=== PATIENT | female | born 2000 | race Caucasian/White ===

== ENCOUNTER 2022-03-25 19:51 | Emergency (ER) | payer BC ==
[2022-03-25 20:11] VITALS: BP 115/81; RESP 20
--- NOTE | 2022-03-25 20:37 | ED ---
General Adult HPI <TianSanta - Last Filed: 03/25/22 21:49> - General Source: patient, RN notes reviewed - History of Present Illness -: days(s) (1) Location: head Severity scale (1-10): 4 Quality: aching Consistency: constant Improves with: none Worsens with: none Associated Symptoms: cough, fever/chills, malaise, nausea/vomiting (no vomiting) Treatments Prior to Arrival: none <Kurt Leiva - Last Filed: 03/26/22 01:57> - General Chief complaint: Upper Respiratory Infection Stated complaint: Congestion,fever,ear pain Time Seen by Provider: 03/25/22 20:40 - History of Present Illness Initial comments: 21-year-old well-appearing female presents to the emergency room with complaints of body aches, congestion and fevers that started yesterday. She states that her boss and another coworker did test positive for coronavirus last week. Patient denies any medical history. She is a nonsmoker. She was not vaccinated against coronavirus. (Kurt Leiva) - Related Data Allergies Allergy/AdvReac Type Severity Reaction Status Date / Time No Known Allergies Allergy Verified 03/25/22 19:55 Review of Systems ROS Other: All systems not noted in ROS Statement are negative. <Santa Overton - Last Filed: 03/25/22 21:49> ROS Other: All systems not noted in ROS Statement are negative. <Kurt Leiva - Last Filed: 03/26/22 01:57> ROS Statement: Those systems with pertinent positive or pertinent negative responses have been documented in the HPI. Past Medical History Past Medical History: No Reported History History of Any Multi-Drug Resistant Organisms: None Reported Past Surgical History: No Surgical Hx Reported Past Psychological History: No Psychological Hx Reported Smoking Status: Never smoker Past Alcohol Use History: None Reported Past Drug Use History: None Reported <Santa Overton - Last Filed: 03/25/22 21:49> General Exam General appearance: alert, in no apparent distress Head exam: Present: atraumatic Eye exam: Present: EOMI. Absent: scleral icterus, periorbital swelling, periorbital tenderness ENT exam: Present: mucous membranes moist, TM's normal bilaterally Neck exam: Present: full ROM. Absent: meningismus, lymphadenopathy Respiratory exam: Present: normal lung sounds bilaterally. Absent: respiratory distress, wheezes, rales, rhonchi, accessory muscle use Cardiovascular Exam: Present: tachycardia GI/Abdominal exam: Present: soft. Absent: distended, tenderness, rigid Extremities exam: Present: normal inspection, normal capillary refill. Absent: tenderness, pedal edema, calf tenderness Back exam: Present: full ROM. Absent: tenderness, CVA tenderness (L), rash noted Neurological exam: Present: alert, oriented X3 Psychiatric exam: Present: normal affect, normal mood Skin exam: Present: warm, normal color. Absent: cyanosis, petechiae, pallor <Kurt Leiva - Last Filed: 03/26/22 01:57> Course Vital Signs 03/25/22 03/25/22 19:53 22:30 Temperature 100.8 F H 103.3 F H Pulse Rate 111 H 118 H Respiratory 20 20 Rate Blood Pressure 115/81 O2 Sat by Pulse 100 Oximetry Medical Decision Making <Kurt Leiva - Last Filed: 03/26/22 01:57> - Medical Decision Making Patient presents with cough, sore throat and fever that started yesterday. She was exposed to coworkers were positive for coronavirus. She is positive for coronavirus she has not been vaccinated. She was given Tylenol and Motrin in the emergency room for fever and bodyaches. She was offered steroids for her sore throat and cough but declined because she doesn't like the way they make her feel. She was directed to increase her fluid intake, take Tylenol and Motrin for body aches and pains. Vitamin C, vitamin D and zinc to improve immune health. Return to the emergency room with any worsening symptoms. Case discussed with Dr. Hernandes (Kurt Leiva) - Lab Data Lab Results 03/25/22 Range/Units 19:58 Coronavirus (PCR) Detected A (Not Detectd) Disposition <Santa Overton - Last Filed: 03/25/22 21:49> Is patient prescribed a controlled substance at d/c from ED?: No <Kurt Leiva - Last Filed: 03/26/22 01:57> Clinical Impression: COVID-19 Disposition: HOME SELF-CARE Additional Instructions: Increase your fluid intake. Take Tylenol and Motrin as needed for body aches or fevers. You can use Benadryl [id number] for any nausea. I suggest taking vitamin C, vitamin D and zinc for immune health. Self quarantine for 5 days from symptom onset and until symptoms resolve. Follow-up with the primary care doctor as needed. Return to the emergency room with any new or worsening symptoms Referrals: Nonstaff,Physician [REFERRING] - 1-2 days
[2022-03-25] MEDS ORDERED: ACETAMINOPHEN TAB 325 MG TAB PO STA (20:47)
[2022-03-25] MEDS ORDERED: KETOROLAC 15 MG/ML 1 ML VIAL IM STA (20:47)
[2022-03-25] MEDS ORDERED: ONDANSETRON ODT 4 MG TAB PO STA (20:49)
[2022-03-25] MEDS ORDERED: IBUPROFEN 600 MG TAB PO STA (22:01)
[2022-03-25 22:50] VITALS: PULSE 118; TEMP 103.3
== END 2022-03-25 22:30 | disposition home or self-care (01) ==
LOC: EC 19:51
DX: U07.1 COVID-19 (principal)
CPT/HCPCS: 87635